=== PATIENT | male | born 1945 | race Two or more races ===

== ENCOUNTER 2020-01-23 06:25 | Day surgery (SDC) | payer OTHER | END 2020-01-23 12:15 | disposition home or self-care (01) | LOC: AMB-ENDOS 06:25 → CIR.AMB 12:45 → AMB-ENDOS 12:45 | DX: K63.5 Polyp of colon (principal); K57.30 Diverticulosis of large intestine without perforation or abscess without bleeding; K64.2 Third degree hemorrhoids; Z12.11 Encounter for screening for malignant neoplasm of colon ==

== ENCOUNTER 2025-04-28 09:26 | Outpatient (CLI) | payer OTHER | END 2025-04-28 09:27 | disposition home or self-care (01) | LOC: NUCLEAR 09:26 | PROVIDERS: ATTEND Psychiatry & Neurology Clinical Neurophysiology | DX: G30.1 Alzheimer's disease with late onset (principal); G31.84 Mild cognitive impairment of uncertain or unknown etiology | CPT/HCPCS: 78803; A9557 ==